=== PATIENT | female | born 1980 | race Hispanic/Latino ===

== ENCOUNTER 2016-11-08 16:25 | Emergency (ER) | payer OTHER ==
[~2016-11-08] VITALS: Ht 170.2 cm; Wt 95.3 kg
[~2016-11-08 16:25] MED LIST: CITRANATAL DHA1 KIT PO; CYANOCOBAL1000 MCG/1 IM; CYCLOBENZAPRINE10 M1 PO; DOXYCYCLINE MO100 MG PO; FOLIC ACID 1 MG PO; GUAFENESIN400 MG PO; IBU600 MG PO; LANSOPRAZOLE15 MG PO; LIORESAL 10MG T10 MG PO; MOBIC15 M1 PO; MOTRIN 800MG T800 MG PO; MOTRIN600 MG PO; NAPROXEN500 MG PO; NATURAL IRON65 MG PO; ONDANSETRON8 M1 PO; PREDNISONE 20MG20 MG PO; PROAIR HFA0.09 MG/Ac INH; PULMICORT FLE180 MCG INH; REGLAN10 MG PO; ROBITUSSIN W/CO10 ML PO; TESSALON PERLE100 MG PO; TRAMADOL HCL50 M1 PO; TYLENOL500 MG PO; ZYRTEC ALLERGY10 MG PO
[2016-11-08 16:29] VITALS: BP 116/76
--- NOTE | 2016-11-08 17:21 | RADIOLOGY REPORT ---
EXAMINATION: XR SHOULDER, RIGHT CLINICAL INFORMATION: Diffuse right arm and right shoulder pain. COMPARISON: None TECHNIQUE: AP external rotation, Grashey, scapular Y, and axillary views of the right shoulder. FINDINGS: The bones and soft tissues are normal. No fracture. Glenohumeral and acromioclavicular alignment is anatomic with normal joint space. No abnormal soft tissue calcifications. IMPRESSION: Unremarkable right shoulder.
[2016-11-08] MEDS ORDERED: MOBIC15 M1 PO (17:28)
--- NOTE | 2016-11-08 17:28 | ED UPPER/LOWER EXTREMITY COMPL ---
History of Present Illness General Chief Complaint: Upper Extremity Problem Stated Complaint: RT SHOULDER AND ARM PAIN X 2WEEKS Source: patient Exam Limitations: no limitations Vital Signs & Intake/Output Vital Signs & Intake/Output Vital Signs Date Time Temp Pulse Resp B/P Pulse O2 O2 Flow FiO2 Ox Delivery Rate 11/08 1629 97.2 87 20 116/76 97 Room Air Room Air Allergies Coded Allergies: Iodinated Contrast Media - Oral and (IODINATED CONTRAST MEDIA - IV DYE) (RASH, HIVES 04/26/16) amoxicillin (RASH 04/26/16) iodine (RASH, HIVES 04/26/16) peanut (RASH, HIVES 04/26/16) shellfish derived (RASH, HIVES 04/26/16) Reconcile Medications Albuterol Sulfate (Proair Hfa) 0.09 MG/Actuation VIKAS 2 PUFF INH PRN ASTHMA ( Reported) Benzonatate (Tessalon Perle) 100 MG SGL 1 TAB PO TID COUGH CETIRIZINE HCL (Zyrtec) 10 MG CAPSULE 1 CAP PO DAILY PRN ALLERGIES (Reported) Cyanocobalamin 1,000 MCG/ML WILSON 1 ML IM Q30D SUPPLEMENT (Reported) Cyclobenzaprine HCl 10 MG TABLET 1 TAB PO TID PRN MUSCLE RELAXANT MAY CAUSE DROWSINESS DOXYCYCLINE MONOHYDRATE (Doxycycline Monohydrate) 100 MG CAP 1 TAB PO BID INFECTION FERROUS SULFATE (IRON) 65 MG TAB 1 TAB PO BID SUPPLEMENT (Reported) Folic Acid 1 MG TAB 1 MG PO DAILY FOLIC ACID SUPPLEMENT (Reported) Guaifenesin (Guafenesin) 400 MG TAB 1 TAB PO TID PRN COUGH Ibuprofen (Motrin) 600 MG TAB 1 TAB PO TID PRN PAIN/FEVER Lansoprazole 15 MG CAPSULE.DR 1 CAP PO DAILY HEARTBURN (Reported) Meloxicam (Mobic) 15 MG TABLET 1 TAB PO DAILY pain Meloxicam (Mobic) 15 MG TABLET 1 TAB PO DAILY PRN PAIN/INFLAMMATION Robitussin AC (Guaifenesin-Codeine Syrup) 10 ML UDC 5 ML PO Q6 COUGH Tramadol HCl 50 MG TABLET 1-2 TAB PO Q6H PRN pain Triage Note: PT TO ED WITH C/O RIGHT SHOULDER PAIN X 2 WEEKS, NO KNOWN INJURY OR FALL/HEAVY LIFTING. Triage Nurses Notes Reviewed? yes Onset: Abrupt Duration: week(s): (2) Timing: recent history Severity: moderate, severe Pain/Injury Location: Right: Shoulder, Elbow. Method of Injury: unknown No Modifying Factors: none : No Patient currently breastfeeds: No HPI: 36-year-old female comes into the emergency room for further evaluation of right shoulder pain and right elbow pain. Patient reports going on for the past 2 weeks. Patient denies any trauma. Pain is sharp. Pain radiates down to her right elbow. Pain is worse with certain movements. Denies any prior history of this. Denies any other associated symptoms. (HARSHIL BRYAN) Past History Travel History Traveled to [place] past 21 day No Medical History Any Pertinent Medical History? 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 No (HARSHIL BRYAN) Review of Systems Review of Systems Constitutional: Reports: no symptoms. EENTM: Reports: no symptoms. Respiratory: Reports: no symptoms. Cardiovascular: Reports: no symptoms. Gastrointestinal/Abdominal: Reports: no symptoms. Genitourinary: Reports: no symptoms. Musculoskeletal: Reports: see HPI. Skin: Reports: no symptoms. Neurological/Psychological: Reports: no symptoms. Hematologic/Endocrine: Reports: no symptoms. Immunological: Reports: no symptoms. All Other Systems: Reviewed and Negative (HARSHIL BRYAN) Physical Exam Physical Exam General Appearance: well developed/nourished Head: atraumatic Eyes: Bilateral: normal appearance. Ears, Nose, Throat: normal ENT inspection, hearing grossly normal Neck: normal inspection Cardiovascular/Respiratory: no respiratory distress Back: normal inspection Shoulder Right: normal range of motion, soft tissue tenderness Elbow Right: tenderness over lateral epicondyle Hand Right: normal inspection, normal range of motion Neurologic/Tendon: normal sensation, normal motor functions, normal tendon functions, responds to pain, no evidence tendon injury, no pulse deficit Skin: intact, normal color, warm/dry Lymphatic: no anterior cervical heidi (HARSHIL BRYAN) Progress Differential Diagnosis: compartment syndrome, contusion, dislocation, fracture, septic arthritis, sprain, tendon injury, impingement syndrome, Plan of Care: Current Medications Sig/George Start time Last Medication Dose Stop Time Status Admin Ketorolac 60 MG ONCE ONE 11/08 1744 UNVr Tromethamine 11/08 1745 (Toradol) Diagnostic Imaging: Viewed by Me: Radiology Read. Discussed w/RAD: Radiology Read. Radiology Impression: EXAM TYPE: RAD - XRY-SHOULDER COMPLETE-RIGHT EXAMINATION: XR SHOULDER, RIGHT CLINICAL INFORMATION: Diffuse right arm and right shoulder pain. COMPARISON: None TECHNIQUE: AP external rotation, Grashey, scapular Y, and axillary views of the right shoulder. FINDINGS: The bones and soft tissues are normal. No fracture. Glenohumeral and acromioclavicular alignment is anatomic with normal joint space. No abnormal soft tissue calcifications. IMPRESSION: Unremarkable right shoulder. DICTATED BY: ANISA QUEVEDO,GABRIEL DATE/TIME DICTATED:09/26 AGRISCIENCE INSTRUCTOR:CAPUTO DATE/TIME TRANSCRIBED:11/08/161716 (HARSHIL BRYAN) Departure Departure Disposition: HOME OR SELF CARE Condition: Stable Clinical Impression Primary Impression: Tendinitis of right elbow Secondary Impressions: Impingement syndrome of right shoulder Referrals: CHEO GALVAN (PCP/Family) SANDI ABURTO MD Additional Instructions: take Mobic for pain. Ice area. Follow-up with orthopedic doctor if not better in 3-5 days. Return if any other concerns worsening symptoms. Departure Forms: Customer Survey General Discharge Information Prescriptions: Current Visit Scripts Meloxicam (Mobic) 1 TAB PO DAILY #15 TAB Comments 11/08/2016 6:48:35 PM Patient clinically looks well. Patient is nontoxic-appearing. Patient is in no apparent distress. Patient resting comfortably in room. Symptoms are most consistent with tendinitis of the elbow or possible impingement syndrome of the shoulder. Follow-up with orthopedic doctor. Take Mobic as prescribed. Return if any concerns worsening symptoms. (HARSHIL BRYAN)
== END 2016-11-08 17:42 ==
LOC: ERH 16:25
DX: M77.8 Other enthesopathies, not elsewhere classified (principal); M25.511 Pain in right shoulder
CPT/HCPCS: 73030-RT; 96372; J1885

== ENCOUNTER 2016-11-15 08:41 | Emergency (ER) | payer OTHER ==
[~2016-11-15] VITALS: Ht 170.2 cm; Wt 95.3 kg
[2016-11-15 08:46] VITALS: BP 120/86
[2016-11-15] MEDS ORDERED: BACLOFEN10 M1 PO (10:31)
[2016-11-15] MEDS ORDERED: IBUPROFEN600 M1 PO (10:31)
[2016-11-15] MEDS ORDERED: ULTRAM50 M1 PO (10:31)
== END 2016-11-15 09:24 | disposition admitted as inpatient to this hospital (09) ==
LOC: ERH 08:41
DX: M79.603 Pain in arm, unspecified (principal)

== ENCOUNTER 2016-11-15 09:42 | Emergency (ER) | payer OTHER ==
[~2016-11-15] VITALS: Ht 170.2 cm; Wt 95.3 kg
[2016-11-15 10:02] VITALS: BP 103/78
--- NOTE | 2016-11-15 10:29 | ED UPPER/LOWER EXTREMITY COMPL ---
History of Present Illness General Chief Complaint: Upper Extremity Problem Stated Complaint: RT UPPER EXTREM INJURY Source: patient, family, old records Exam Limitations: no limitations Vital Signs & Intake/Output Vital Signs & Intake/Output Vital Signs Date Time Temp Pulse Resp B/P Pulse O2 O2 Flow FiO2 Ox Delivery Rate 11/15 1002 98.2 79 18 103/78 100 Room Air Allergies Coded Allergies: Iodinated Contrast Media - Oral and (IODINATED CONTRAST MEDIA - IV DYE) (RASH, HIVES 04/26/16) amoxicillin (RASH 04/26/16) iodine (RASH, HIVES 04/26/16) peanut (RASH, HIVES 04/26/16) shellfish derived (RASH, HIVES 04/26/16) Reconcile Medications Baclofen 10 MG TABLET 1 TAB PO TIDPRN PRN muscle spasm/strain Ibuprofen 600 MG TABLET 1 TAB PO Q6PRN PRN pain with food Meloxicam (Mobic) 15 MG TABLET 1 TAB PO DAILY pain Tramadol HCl (Ultram) 50 MG TABLET 1-2 TAB PO Q6PRN PRN severe pain Triage Note: 36 Y/O FEMALE C/O R ARM PAIN X 1 WEEK; RECENTLY EVAL'D IN ED FOR SAME. HAS NOT F/U WITH ORTHO. Triage Nurses Notes Reviewed? yes Onset: Last week Duration: day(s):, constant, continues in ED Timing: recent history Severity: moderate Pain/Injury Location: Right: Arm, Shoulder. Method of Injury: unknown Modifying Factors: Improves With: pain medication, rest. Worsens With: movement. Associated Symptoms: numbness, stiffness LMP (ages 10-50): unknown : No Patient currently breastfeeds: No HPI: 1 week prior to admission patient complains of right shoulder and arm pain described as sharp constant worse with movement nonradiating with slight improvement with anti-inflammatory medication. She denies fever chills nausea vomiting diarrhea abdominal pain chest pain shortness breath headache dysuria rash bleeding change in motor sensory function. Past History Travel History Traveled to [place] past 21 day No Medical History Any Pertinent Medical History? 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 No Review of Systems Review of Systems Constitutional: Reports: no symptoms. EENTM: Reports: no symptoms. Respiratory: Reports: no symptoms. Cardiovascular: Reports: no symptoms. Gastrointestinal/Abdominal: Reports: no symptoms. Genitourinary: Reports: no symptoms. Musculoskeletal: Reports: see HPI, joint pain. Skin: Reports: no symptoms. Neurological/Psychological: Reports: no symptoms. Hematologic/Endocrine: Reports: no symptoms. Immunological: Reports: no symptoms. All Other Systems: Reviewed and Negative Physical Exam Physical Exam General Appearance: well developed/nourished, alert, awake, anxious, mild distress, obese Head: atraumatic, normal appearance Eyes: Bilateral: normal appearance, PERRL, EOMI. Ears, Nose, Throat: normal pharynx, normal ENT inspection, hearing grossly normal Neck: normal inspection, supple Cardiovascular/Respiratory: regular rate/rhythm Peripheral Pulses: 4+ carotid (R), 4+ carotid (L) Back: normal inspection, normal range of motion, no vertebral tenderness Shoulder Left: normal range of motion, normal inspection Shoulder Right: normal range of motion, normal inspection, soft tissue tenderness Elbow Left: normal range of motion, normal inspection Elbow Right: normal range of motion, normal inspection Hand Left: normal inspection, normal range of motion Hand Right: normal inspection, normal range of motion Upper Extremity Reflexes: 2+: bicep (R), bicep (L). Leg Left: normal range of motion, normal inspection Leg Right: normal range of motion, normal inspection Hip Left: normal range of motion, normal inspection Hip Right: normal range of motion, normal inspection Knee Left: normal range of motion, normal inspection Knee Right: normal range of motion, normal inspection Foot Left: normal inspection, normal range of motion Foot Right: normal inspection, normal range of motion Lower Extremity Reflexes: 2+: knee (R), knee (L). Neurologic/Tendon: normal sensation, normal motor functions, normal tendon functions Skin: intact, normal color, warm/dry Lymphatic: no anterior cervical heidi Progress Differential Diagnosis: contusion, sprain, tendon injury Plan of Care: Current Medications Sig/George Start time Last Medication Dose Stop Time Status Admin Cyclobenzaprine HCl 10 MG ONCE ONE 11/15 1029 UNVr (Flexeril 10MG Tab) 11/15 1030 Ibuprofen 600 MG ONCE ONE 03/08 1030 UNVr (Motrin) 11/15 1031 Departure Departure Time of Disposition: 1029 Disposition: HOME OR SELF CARE Condition: Stable Clinical Impression Primary Impression: Rotator cuff impingement syndrome of right shoulder Referrals: CHEO GALVAN (PCP/Family) Departure Forms: Customer Survey General Discharge Information Prescriptions: Current Visit Scripts Ibuprofen 1 TAB PO Q6PRN PRN pain #50 TAB with food Baclofen 1 TAB PO TIDPRN PRN muscle spasm/strain #30 TAB Tramadol HCl (Ultram) 1-2 TAB PO Q6PRN PRN severe pain #30 TAB
[2016-11-15] MEDS ORDERED: BACLOFEN10 M1 PO (10:31)
[2016-11-15] MEDS ORDERED: IBUPROFEN600 M1 PO (10:31)
[2016-11-15] MEDS ORDERED: ULTRAM50 M1 PO (10:31)
== END 2016-11-15 10:37 ==
LOC: ERH 09:42
DX: M75.41 Impingement syndrome of right shoulder (principal)

== ENCOUNTER 2018-05-13 16:07 | Emergency (ER) | payer OTHER ==
[~2018-05-13] VITALS: Ht 167.6 cm; Wt 95.3 kg
[~2018-05-13 16:07] MED LIST changes: +BACLOFEN10 M1 PO; +IBUPROFEN600 M1 PO; +ULTRAM50 M1 PO
[2018-05-13 16:10] VITALS: BP 157/87
--- NOTE | 2018-05-13 16:15 | ED EYE COMPLAINT ---
History of Present Illness General Chief Complaint: Eye Problems Stated Complaint: IRRITATION TO BOTH EYES PER PT Source: patient Exam Limitations: no limitations Vital Signs & Intake/Output Vital Signs & Intake/Output Vital Signs Date Time Temp Pulse Resp B/P B/P Pulse O2 O2 Flow FiO2 Mean Ox Delivery Rate 05/13 1610 98.6 80 18 157/87 98 Room Air Allergies Coded Allergies: Iodinated Contrast- Oral and IV Dye (IODINATED CONTRAST MEDIA - IV DYE) (RASH, HIVES 04/26/16) amoxicillin (RASH 04/26/16) iodine (RASH, HIVES 04/26/16) peanut (RASH, HIVES 04/26/16) shellfish derived (RASH, HIVES 04/26/16) Reconcile Medications Baclofen 10 MG TABLET 1 TAB PO TIDPRN PRN muscle spasm/strain Fluticasone Propionate (Flonase Allergy Relief) 50 MCG/ACTUATION SPRAY.SUSP 2 SPRAY ALISHA DAILY ALLERGIC RHINITIS Ibuprofen 600 MG TABLET 1 TAB PO TID PRN PAIN with food Ibuprofen 600 MG TABLET 1 TAB PO Q6PRN PRN pain with food Meloxicam (Mobic) 15 MG TABLET 1 TAB PO DAILY pain Olopatadine HCl (Pataday) 0.2 % DROPS 1 GTT OPH DAILY CONJUNCTIVITIS Tramadol HCl (Ultram) 50 MG TABLET 1-2 TAB PO Q6PRN PRN severe pain Triage Note: 37 YO FEMALE TO TRIAGE FOR EVAL OF REDNESS/PAIN/ITCHINESS TO BILATEREAL EYES. STATES IT STARTED IN THE R EYE AND NOW HAS MOVED TO THE R. STATES SHE WAS SEEN 2 TIMES AT THE URGENT CARE AND GIVEN EYE DROPS BUT STATES NO RELIEF. DENIES VISUAL CHANGES. BILAERL EYES NOTED TO BE RED. Triage Nurses Notes Reviewed? yes Onset: Gradual Duration: constant Timing: no prior history Left Eye Associated Symptoms: burning, itching, sensitivity to light Right Eye Associated Symptoms: burning, itching, sensitivity to light : No Patient currently breastfeeds: No HPI: 37-year-old female presented to the emergency department reporting 5 day history of right eye redness and irritation in 4 day history of left eye redness and irritation. She denies any recent trauma or foreign body. 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 She had been seen by urgent care and was prescribed polymyxin eyedrops, she reports it started getting worse and 2 days ago she had been prescribed ofloxacin eyedrops. She has been using these as prescribed. She still feels a grinding sensation in her eye as well as photophobia. She does report some minor sinus congestion, has seasonal allergies and is taking Zyrtec daily. She denies any nausea/vomiting, diarrhea, fever/chills. Past History Travel History Traveled to [place] past 21 day No Medical History Any Pertinent Medical History? 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 No Review of Systems Review of Systems Constitutional: Reports: see HPI. Eyes: Reports: see HPI. Ear: Reports: no symptoms. Nose: Reports: see HPI. Mouth: Reports: no symptoms. Throat: Reports: no symptoms. Respiratory: Reports: see HPI. Cardiovascular: Reports: no symptoms. GI: Reports: no symptoms. Genitourinary: Reports: no symptoms. Musculoskeletal: Reports: no symptoms. Skin: Reports: no symptoms. Neurological/Psychological: Reports: no symptoms. Hematologic/Endocrine: Reports: no symptoms. Immunologic/Allergic: Reports: no symptoms. All Other Systems: Reviewed and Negative Physical Exam General Appearance: well developed/nourished, no apparent distress, alert, awake , comfortable General Inspection: ATRAUMATIC Eyelid: erythema Conjunctiva/Sclera: injected Cornea: normal inspection EOM: intact Pupil: normal accommodation, normal pupil, PERRL General Inspection: ATRAUMATIC Eyelid: erythema Conjunctiva/Sclera: injected Cornea: normal inspection EOM: intact Pupil: normal accommodation, normal pupil, PERRL Posterior Segments: normal funduscopic Physical Exam Head: atraumatic, normal appearance Nose: normal inspection Mouth/Throat: normal mouth inspection, pharynx normal Neck: normal inspection, full range of motion, lymphadenopathy (R) Cardiovascular/Respiratory: no respiratory distress Neurologic/Psych: no motor/sensory deficits, awake, alert, oriented x 3, normal gait, normal mood/affect Skin: intact, normal color, warm/dry Progress Differential Diagnosis: corneal foreign body, conjunctivitis (ALLERGIC VS BACT VS VIRAL) Plan of Care: 37-year-old female with bilateral conjunctivitis for 5 days. Continue taking ofloxacin eyedrops as directed. Start taking Pataday eyedrops daily bilaterally. Patient advised to continue taking Zyrtec into also take Flonase 2 sprays each nostril daily. She is advised to follow-up with her primary care provider this week. She is advised to return to the emergency department with any new or worsening symptoms. Departure Departure Disposition: HOME OR SELF CARE Condition: Stable Clinical Impression Primary Impression: Conjunctivitis Qualifiers: Conjunctivitis type: acute Acute conjunctivitis type: bacterial Laterality: bilateral Qualified Code: H10.33 - Unspecified acute conjunctivitis, bilateral Secondary Impressions: Seasonal allergies Referrals: Kely Hoang (PCP/Family) Additional Instructions: Continue taking ofloxacin drops daily. Take Pataday drops as prescribed. Continue taking Zyrtec daily. Start taking Flonase bilateral nostril twice daily. Follow-up with primary care provider this week. Return to the emergency department with new or worsening symptoms. Departure Forms: Customer Survey General Discharge Information Prescriptions: Current Visit Scripts Olopatadine HCl (Pataday) 1 GTT OPH DAILY #1 BOT Ibuprofen 1 TAB PO TID PRN PAIN #15 TAB with food Fluticasone Propionate (Flonase Allergy Relief) 2 SPRAY ALISHA DAILY #1 BOT
[2018-05-13] MEDS ORDERED: PATADAY2.5 ML OPH (16:35)
[2018-05-13] MEDS ORDERED: IBUPROFEN600 M1 PO (16:35)
[2018-05-13] MEDS ORDERED: FLONASE ALLERG9.9 ML NAS (16:43)
== END 2018-05-13 16:40 ==
LOC: ERH 16:07
DX: H10.9 Unspecified conjunctivitis (principal); J30.2 Other seasonal allergic rhinitis